=== PATIENT | female | born 1985 | race Caucasian/White ===

== ENCOUNTER 2018-02-05 14:58 | Emergency (ER) | payer BC ==
[2018-02-05] MEDS: LIDOCAINE 1% (MDV) 20 ML INJ SC (15:24)
[2018-02-05] MEDS: IBUPROFEN 600 MG TAB PO (16:18)
== END 2018-02-05 16:23 | disposition home or self-care (01) ==
LOC: FTE 14:58
DX: S61.111A Laceration without foreign body of right thumb with damage to nail, initial encounter (principal); W23.0XXA Caught, crushed, jammed, or pinched between moving objects, initial encounter; Y92.810 Car as the place of occurrence of the external cause
CPT/HCPCS: 29130; 73140; 99283-25